=== PATIENT | female | born 1985 | race Caucasian/White ===

== ENCOUNTER → 2017-06-06 | Outpatient (CLI) | payer OTHER ==
[~2017-06-06] MED LIST: DROS1TAB24 PO; ESCI1TAB10 PO; FEXO1TAB46 PO; OMEP20CA9 PO
== END | disposition home or self-care (01) ==
LOC: C.PAPS 10:11
PROVIDERS: ATTEND Obstetrics & Gynecology
DX: Z12.4 Encounter for screening for malignant neoplasm of cervix (principal); R87.616 Satisfactory cervical smear but lacking transformation zone; Z87.42 Personal history of other diseases of the female genital tract

== ENCOUNTER → 2017-07-07 | Outpatient (CLI) | payer OTHER | END | disposition home or self-care (01) | LOC: C.PATHSPEC 11:37 | PROVIDERS: ATTEND Obstetrics & Gynecology | DX: B97.7 Papillomavirus as the cause of diseases classified elsewhere (principal) ==

== ENCOUNTER 2020-04-01 22:52 | Inpatient (IN) ==
[2020-04-01] MEDS ORDERED: OXYTOCIN 30 UNITS/500ML NSS ONE (23:31)
[2020-04-01] MEDS ORDERED: OXYTOCIN 30 UNITS/500 ML BAG IV PRN (23:34)
[2020-04-01] MEDS ORDERED: METHYLERGONOVINE MALEATE 0.2 MG/ML AMP IM PRN (23:34)
[2020-04-01] MEDS ORDERED: LACTATED RINGER'S 1,000 ML IV PRN (23:34)
--- NOTE | 2020-04-01 23:38 | History & Physical Report ---
Date of Service April 01, 2020 History of Present Illness Chief Complaint: 31w4d with JACKIE castillo at home this evening around 2114. Initially unsure if she had ruptured, she ambulated with a pad on, called me back to say the pad was wet and there was new bright red blood as of 2199 and was advised to come to L&D. On arrival she is 10/100/ presenting part (lionel breech) at perineum, with Cat 2 FHT and obvious PROM. (Document abandoned to go to room for delivery. 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 Cotest [place] Depression Encounter for anatomic survey Encounter for routine gynecological examination GERD (gastroesophageal reflux disease) Human papilloma virus Hx of varicella Moderate cervical dysplasia Pap smear vagina w LGSIL Rosacea Surgical History H/O LEEP Status post colposcopy Family History Mother Breast cancer Epilepsy Thyroid disorder Grandmother (Maternal) Breast cancer Twins live born in hospital Brother Depression Bipolar 1 disorder Social History Smoking Status: Never smoker Hx Alcohol Use: No Hx Substance Use: No Preferred Language: Czech Communication Ability: Effective Beliefs That Will Affect Care: None marital status: marital status details: Lewis Bermeo (26) [phone] Current Living Situation: Spouse Current Living Situation Comment: lives with spouse, 1 dog current occupational status: employed current occupation: apraiser trainee Other Information That Helps Us Care for You: No Feels Safe at Home: Yes Safety Concerns: Feels Safe At This Time Results & Data ([facility]) Vital Signs (Past 12 Hours) Vital Signs Temp Pulse Resp BP 04/01/20 23:09 80 135/81 04/01/20 23:05 98.1 F 20 Code Status & VTE Plan VTE Prophylaxis Plan VTE Prophylaxis will be ordered: Yes Coding Level of Care Code None
[2020-04-02] MEDS ORDERED: ACETAMINOPHEN 325 MG TAB ONE (00:17)
[2020-04-02 00:31] LABS: Hematocrit (blood only) 34.6 % (37-47); Mean Corpuscular Hgb Conc 34.7 g/dL (32-36); Mean Corpuscular Volume 83.6 fL (80-100); Platelet Count 110 K/uL (130-400); RDW Coefficient of Variation 13.4 % (11.5-14.5); RDW Standard Deviation 40.6 fL (36.4-46.3); Red Blood Count 4.14 M/uL (4.2-5.4); White Blood Count 12.41 K/uL (4.8-10.8)
[2020-04-02 00:32] LABS: Platelet Estimate Decreased (Normal)
--- NOTE | 2020-04-02 00:47 | Delivery Summary ---
Vaginal Delivery Summary Date of Service April 02, 2020 Vaginal Delivery Summary DIAGNOSES: 1. Cid intrauterine at 31w4d gestation. 2. PPROM, PTL. 3. Group B Streptococcus Unknown. 4. Rh negative 5. Breech presentation PROCEDURE: Spontaneous Breech vaginal delivery without laceration. SURGEON: Ave Gardiner MD. WAITER/WAITRESS COUNTER: None. ESTIMATED BLOOD LOSS: 250 mL. COMPLICATIONS: None. PLACENTA: Spontaneous and intact with a 3-vessel cord. DISPOSITION: Stable to labor and delivery. DESCRIPTION: Sherry presented to L&D having experienced PPROM at home for clear fluid approximately two hours prior. She had noted increasing pelvic pain and eventually distinct contractions while en route to hospital. On arrival, she was found to be lionel breech, 10/100/+3 with breech at the perineum and sacrum-posterior. She was counseled quickly on the impending delivery, Peds / Anesthesia (Lynda / Senait Melvin) were summoned, and an additional INDEX CLERK (Ian) was also called. The patient was able to breathe through contractions until the additional staff were present. Delivery equipment was prepared, peds cart was checked and prepped for resuscitation, and Piper forceps were added to the delivery table. Throughout this time the heart tones were 160-170 with accels, good variability, and variable decels during each contraction that gradually deepened and widened. Once all necessary staff were present the patient pushed with a contraction and delivered the entire infant to the shoulders, releasing the legs and arms in physiologic position without assistance and with the carefully supported. The infant rotated naturally to a sacrum-anterior presentation during this process. The mentum was visualized and the body was allowed to curve downwards with the mentum gently pressed to maintain neck flexion. The infant's head then delivered. There was no nuchal cord. The infant was noted to be impressively vigorous for gestational age with an audible cry during cord clamping, and moving all extremities. The was moved directly to the warmer where Dr. Howell assumed care. The placenta delivered spontaneously and was noted to be intact and with a 3VC. The cervix, vagina and perineum were examined and were found to be without defect requiring repair. The fundus was firm and lochia minimal immediately after delivery.
[2020-04-02] MEDS ORDERED: BENZOCAINE 20% AER SPR 82.5 GM CAN EXT PRN (00:55)
[2020-04-02] MEDS ORDERED: HYDROCORTISONE ACETATE 25 MG SUPP PR PRN (00:55)
[2020-04-02] MEDS ORDERED: ACETAMINOPHEN 325 MG TAB PO PRN (00:55)
[2020-04-02] MEDS ORDERED: DIPHTHERIA/TETANUS/PERTUSSIS 0.5 ML SYR/VIAL IM ONE (00:55)
[2020-04-02] MEDS ORDERED: SUPERCREAM 0.870% 15 GM JAR EXT PRN (00:55)
[2020-04-02] MEDS ORDERED: OXYCODONE/ACETAMINOPHEN 5mg/325mg TAB PO PRN (00:55)
[2020-04-02] MEDS ORDERED: OXYTOCIN 30 UNITS/500 ML BAG IV PRN (00:55)
[2020-04-02] MEDS: IBUPROFEN 600 MG TAB PO PRN ×2 (03:30→09:53)
[2020-04-02] MEDS ORDERED: PRENATAL VITAMIN 1 TAB PO SCH (08:00)
[2020-04-02] MEDS ORDERED: DOCUSATE SODIUM 100 MG CAP PO SCH (08:00)
--- NOTE | 2020-04-02 08:30 | Obstetrical Progress Note ---
Date of Service April 02, 2020 Assessment & Plan (1) state: (2) Rubella non-immune status, antepartum: (3) Need for rhogam due to Rh negative mother: Subjective Ambulation: ambulating normally Voiding: no voiding problems Passing Gas:: Yes Diet Tolerance:: regular diet Lochia:: Small Feeding Type:: breast feeding (plans to begin pumping this morning.) Physical Exam Constitutional WD/WN, vitals as above Eyes PERRL, conjunctivae normal, anicteric sclerae Neck normal visual inspection Respiratory normal respiratory effort and able to speak in complete sentences; no respiratory distress and no labored breathing Cardiovascular Rate/Rhythm: regular rate and regular rhythm Extremities: no edema Chest (Breasts) Chest: normal inspection of chest Gastrointestinal (Abdomen) Inspection/Auscultation: abdomen normal to inspection Soft, postgravid Psychiatric A+Ox3, euthymic affect Genitourinary OB Exam Abdomen: + fundal height Fundus: + firm and + relation to umbilicus (fundus just below umbilicus); not tender Results & Data ([facility]) Vital Signs (Past 12 Hours) Vital Signs Temp Pulse Pulse Resp BP BP 04/02/20 03:30 99.0 F 71 18 139/90 04/02/20 02:13 75 156/82 H 04/02/20 02:09 99.3 F 71 18 158/75 H 04/02/20 01:54 74 18 138/82 04/02/20 01:39 83 18 133/77 04/02/20 01:24 70 18 137/79 04/02/20 01:09 68 20 144/82 H 04/02/20 00:54 70 20 143/83 H 04/02/20 00:39 73 20 150/87 H 04/02/20 00:24 81 20 147/90 H 04/02/20 00:09 99 H 20 138/81 04/01/20 23:09 80 135/81 04/01/20 23:05 98.1 F 20
== END 2020-04-02 12:55 | disposition home or self-care (01) | DRG 807 ==
LOC: OPB 22:52 → 4S1 22:54 → 4S2 04-02 02:31